=== PATIENT | female | born 1945 | race Caucasian/White ===

== ENCOUNTER → 2018-03-05 | Outpatient (CLI) | payer OTHER ==
[~2018-03-05] MED LIST: ACTOS15 MG PO; ADULT LOW DOSE81 MG PO; ARIXTRA SQ; BENAZEPRIL HCL10 MG PO; CALCIUM 500 +1 EAC5 PO; COLACE 100 MG100 MG PO; GEMFIBROZIL 60600 MG PO; GLUCOPHAGE1000 MG PO; GLUCOSAMINE S1000 M2 PO; IRON PO; KEFLEX500 MG PO; MELATONIN3 MG PO; MOBIC15 MG PO; MULTIVITAMINS PO; ODORLESS GARLI500 MG PO; OMEGA-31000 MG PO; OXYIR5 MG PO; PERCOCET 5-3251 EACH PO; PROMETHAZINE12.5 M4 RE; PYRIDIUM200 M1 PO; SIMVASTATIN40 MG PO; VITAMIN B 12 PO; VITAMIN D1000 UNI1 PO; VITAMINC500 PO; ZOFRAN4 MG PO
== END ==
LOC: M.RAD 07:21
DX: Z12.31 Encounter for screening mammogram for malignant neoplasm of breast (principal); E11.9 Type 2 diabetes mellitus without complications; I10 Essential (primary) hypertension

== ENCOUNTER → 2018-08-23 | Outpatient (CLI) | payer OTHER ==
[2018-08-23 08:32] LABS: POTASSIUM 4.2 mmol/L (3.5-5.1)
[2018-08-23 08:33] LABS: INR 1.2; PROTIME 12.2 Seconds (9.20-11.50)
== END ==
LOC: M.LAB 01:09
PROVIDERS: Student in an Organized Health Care Education/Training Program
DX: E11.9 Type 2 diabetes mellitus without complications (principal); Z79.01 Long term (current) use of anticoagulants

== ENCOUNTER → 2019-03-07 | Outpatient (CLI) | payer OTHER | LOC: M.RAD 07:00 | DX: Z12.31 Encounter for screening mammogram for malignant neoplasm of breast (principal) ==

== ENCOUNTER → 2021-08-19 | Outpatient (CLI) | payer OTHER | LOC: M.RAD 10:14 | PROVIDERS: ATTEND Family Medicine | DX: Z12.31 Encounter for screening mammogram for malignant neoplasm of breast (principal) ==

== ENCOUNTER → 2021-08-23 | Outpatient (CLI) | payer OTHER | LOC: M.RAD 09:57 | PROVIDERS: ATTEND Family Medicine | DX: R92.8 Other abnormal and inconclusive findings on diagnostic imaging of breast (principal) ==